=== PATIENT | female | born 1945 | race Caucasian/White ===

== ENCOUNTER 2016-12-27 09:38 | Emergency (ER) | payer MEDICARE, OTHER ==
[2016-12-27 09:51] VITALS: BP 159/72; PULSE 87; TEMP 98; BMI 29.2
--- NOTE | 2016-12-27 10:00 | PDOC ---
History of Present Illness - General Chief Complaint: Pain Stated Complaint: BACK PAIN Time Seen by Provider: 12/27/16 09:53 History Source: Patient Exam Limitations: No Limitations - History of Present Illness Initial Comments: 12/27/16 09:57 CHIEF COMPLAINT: Chronic Lower back pain HISTORY OF PRESENT ILLNESS: 71-year-old female, primarily Indonesian-speaking presents with chronic lower back pain radiating down left leg with bilateral hip pain. [facility] hematology technician number [id number]. Patient reports she was involved in an accident several years ago where she developed this pain was seen by her doctor gave her "injection" which resolved pain also gave her Naprosyn however patient is allergic to aspirin and was told not to take that medication anymore. Had also placed on Neurontin 2 tablets 3 times a day. Patient reports that the Neurontin is no longer helping her 2 days ago she bent down to pick something up and felt pain in her back. No neurosensory deficits, no bowel or bladder difficulty incontinence or urinary retention, no saddle anesthesia, no footdrop. No history of IVDU or history of cancer. REVIEW OF SYSTEMS: GENERAL: Afebrile, denies any weakness RESPIRATORY: No cough, wheezing, or hemoptysis. CARDIAC: No chest pain or shortness of breath MUSCULOSKELETAL: Pain to generalized lower back. No point tenderness. Pain worse on right than left. SKIN : No erythema, no bruising, no deformity. GI/: Denies any abdominal pain, no urinary difficulty, incontinence or urinary retention. RECTAL: Denies any difficulty this A.m. NEUROLOGICAL: Denies any numbness or tingling. No neurosensory deficits. PHYSICAL EXAM: GENERAL: The patient is awake, alert, and fully oriented, in no acute distress. RESPIRATORY: Lungs clear bilaterally, no rhonchi wheezes or crackles CARDIAC: S1-S2 audible, no murmur rub or gallop MUSCULOSKELETAL: Pain to generalized lower back, nonradiating, no tingling or sensory deficit. Less than 2 second cap refill, +4 popliteal and pedal pulses. GI/: Abdomen soft, nontender, nondistended. No rebound tenderness. No masses palpable. MUSCULOSKELETAL: No spinal point tenderness. Normal reflexive and no deficits to sensation or strength. RECTAL: Normal Rectal Tone. SKIN: Warm, Dry, normal turgor, no erythema, no edema no bruising. Past History - Past Medical History Allergies/Adverse Reactions: Allergies Allergy/AdvReac Type Severity Reaction Status Date / Time aspirin Allergy Severe "SEVERE...D Verified 12/27/16 09:52 EATH" Penicillins Allergy Severe "SEVERE...D Verified 12/27/16 09:52 EATH" latex Allergy Itching Verified 12/27/16 09:52 hydrochlorothiazide AdvReac rapid Verified 12/27/16 09:52 [From [facility]] heart rate lisinopril AdvReac rapid Verified 12/27/16 09:52 heart rate losartan potassium AdvReac rapid Verified 12/27/16 09:52 [From [facility]] heart rate Home Medications: Ambulatory Orders Amlodipine Besylate [Norvasc -] 5 mg PO DAILY 11/28/13 Esomeprazole Mag Trihydrate [Nexium] 40 mg PO DAILY 11/28/13 Gabapentin [Neurontin -] 100 mg PO BID 11/28/13 Loratadine [Claritin -] 10 mg PO DAILY 11/28/13 Multivit-Min/FA/Lycopene/Lut [Centrum Silver Tablet] 1 each PO DAILY 11/28/13 Cyclobenzaprine HCl [Flexeril 10 mg] 10 mg PO BID PRN #30 tablet 12/27/16 Lidocaine 5% Patch [Lidoderm Patch -] 1 patch TP DAILY #15 patch 12/27/16 Asthma: Yes HTN: Yes Hypercholesterolemia: Yes - Psycho/Social/Smoking Cessation Hx Suicidal Ideation: No Smoking Status: No Smoking History: Never smoked Have you smoked in the past 12 months: No Number of Cigarettes Smoked Daily: 0 Information on smoking cessation initiated: No Hx Alcohol Use: No Drug/Substance Use Hx: No Substance Use Type: None *Physical Exam - Vital Signs Last Vital Signs Temp Pulse Resp BP Pulse Ox 98 F 87 18 159/72 98 12/27/16 09:45 12/27/16 09:45 12/27/16 09:45 12/27/16 09:45 12/27/16 09:45 Medical Decision Making - Medical Decision Making 12/27/16 11:31 A/P: Patient with generalized lower back pain radiating down bilateral legs however pain worse on left than right. Patient also complaining of hip pain. Patient states she has history of the same has been under the care of her PMD who gave her "injection" one year ago. Patient states she has not had any other pain since however doctor told her to be careful in lifting or bending. Patient lifted and bent down several days ago after bending down and felt immediate pain. Patient has been taking Neurontin without resolve, no other medication. She also reports having a "patch" which helped resolve the pain name unknown. Attempted to call pharmacy however there is no prescription noted for a patch. X-rays of bilateral hips performed, patient walking with a limp want to rule out injury. Lidoderm patch applied, Flexeril ordered however patient refused states that she does not want to feel dizzy. Awaiting x-ray results. 12/27/16 11:42 X-rays are negative for acute fracture dislocation, will DC patient home on Flexeril and Lidoderm patch. Follow-up with primary care doctor for evaluation of chronic pain. I discussed the physical exam findings, ancillary test results and final diagnoses with the patient. I answered all of the patient's questions. The patient was satisfied with the care received and felt comfortable with the discharge plan and treatment plan. The patient will call to arrange follow-up and will return to the Emergency Department with any new, persistent or worsening symptoms. Patient reports that she feels better after patch and will take Flexeril when she goes home. [facility] hematology technician number [id number] 12/27/16 12:23 *DC/Admit/Observation/Transfer Diagnosis at time of Disposition: Chronic pain Qualifiers: Chronic pain type: chronic pain syndrome Qualified Code(s): G89.4 - Chronic pain syndrome Back pain Qualifiers: Back pain location: low back pain Chronicity: chronic Back pain laterality: bilateral Sciatica presence: with sciatica Sciatica laterality: bilateral sciatica Qualified Code(s): M54.42 - Lumbago with sciatica, left side - Discharge Dispostion Admit: No - Prescriptions Prescriptions: Cyclobenzaprine HCl [Flexeril 10 mg] 10 mg PO BID PRN #30 tablet PRN Reason: Back Pain Lidocaine 5% Patch [Lidoderm Patch -] 1 patch TP DAILY #15 patch - Referrals Referrals: Tiffany Storey MD [Primary Care Provider] - - Patient Instructions Printed Discharge Instructions: Low Back Pain Additional Instructions: 1. Please return to the emergency department with any numbness, tingling, weakness, numbness or tingling to groin or legs, or loss of bowel or bladder function. 2. Use pain medication as ordered. 3. Please is to followup in the office your primary care doctor for evaluation within a week if no improvement. 4. Ice or heat 5. Refrain from lifting anything above 10 pounds, until pain resolved. 1. Por favor regrese al departamento de emergencias con cualquier adormecimiento , hormigueo, debilidad, entumecimiento u hormigueo en la marv o piernas, o p rdida de la funcin intestinal o vesical. 2. Use analgsicos segn lo ordenado. 3. Por favor, es el seguimiento en la oficina de martinez mdico de atencin primaria para la evaluacin dentro de catina semana si no mejora. 4. Hielo o calor 5. Abstenerse de levantar algo por encima de 10 libras, hasta que el dolor se resuelva. Print Language: SOUTH AFRICAN
[2016-12-27 10:20] LABS: URINE APPEARANCE CLEAR; URINE BILIRUBIN NEGATIVE (NEGATIVE); URINE BLOOD NEGATIVE (NEGATIVE); URINE COLOR LTYELLOW; URINE GLUCOSE (UA) NEGATIVE (NEGATIVE); URINE KETONE NEGATIVE (NEGATIVE); URINE LEUK ESTERASE 1+ (NEGATIVE); URINE NITRITE NEGATIVE (NEGATIVE); URINE PROTEIN NEGATIVE (NEGATIVE); URINE UROBILINOGEN NEGATIVE E.U./dl (0.2-1.0)
[2016-12-27] MEDS ORDERED: LIDOCAINE 5% TOPICAL PATCH TP ONE (10:49)
[2016-12-27] MEDS ORDERED: CYCLOBENZAPRINE HCL 10 MG TABLET (FP) PO ONE (10:49)
[2016-12-27] MEDS ORDERED: LIDOCAINE 5% TOPICAL PATCH ONE (10:52)
[2016-12-27] MEDS ORDERED: CYCLOBENZAPRINE HCL 10 MG TABLET (FP) ONE (10:52)
[2016-12-27 11:17] LABS: URINE RBC <1 /hpf (0-3); URINE WBC 2 /hpf (3-5)
[2016-12-27] MEDS ORDERED: LIDOCAINE PATCH REMOVAL MC SCH (22:00)
== END 2016-12-27 12:23 | disposition home or self-care (01) ==
LOC: JER 09:38
DX: M54.42 Lumbago with sciatica, left side (principal); G89.4 Chronic pain syndrome; I10 Essential (primary) hypertension; E78.00 Pure hypercholesterolemia, unspecified; J45.909 Unspecified asthma, uncomplicated
CPT/HCPCS: 73523-TC; 81003; 81015; 87086; 99281-25

== ENCOUNTER 2017-10-18 16:41 | Emergency (ER) | payer OTHER ==
[2017-10-18 16:56] VITALS: BMI 28.5
[2017-10-18 17:22] VITALS: TEMP 97.2
[2017-10-18] MEDS ORDERED: MAG HYDROX/AL HYDROX/SIMETH 30 ML UNIT-DOSE CUP PO ONE (17:25)
[2017-10-18] MEDS ORDERED: SODIUM CHLORIDE 1,000 ML IV STA (17:25)
[2017-10-18] MEDS ORDERED: ACETAMINOPHEN 1000 MG/100 ML VIAL (NON FORMULARY) IVPB ONE (17:25)
[2017-10-18] MEDS ORDERED: ONDANSETRON 4 MG/2 ML VIAL IVPUSH ONE (17:25)
[2017-10-18 17:37] LABS: ANION GAP 14 (8-16); BILIRUBIN,TOTAL 0.5 mg/dL (0.2-1.0); BLOOD UREA NITROGEN 10 mg/dL (7-18); CALCIUM 8.8 mg/dL (8.5-10.1); CHLORIDE 101 mmol/L (98-107); CO2 27 mmol/L (21-32); CREATININE 0.7 mg/dL (0.55-1.02); GLUCOSE,RANDOM 125 mg/dL (74-106); LIPASE 87 U/L (73-393); SGPT/ALT 23 U/L (12-78); SODIUM 142 mmol/L (136-145); TOT PROT 7.6 g/dl (6.4-8.2)
--- NOTE | 2017-10-18 17:37 | PDOC ---
History of Present Illness - General Chief Complaint: Vomiting/Diarrhea Stated Complaint: WEAKNESS,DIARRHEA Time Seen by Provider: 10/18/17 16:56 History Source: Patient Exam Limitations: Language Barrier - History of Present Illness Initial Comments: 10/18/17 17:48 Patient is a 71F with history of HTN and back pain here today complaining of dizziness upon awakening this morning. She went to bed at 11pm. She states that her dizziness gets worse with movement and is improved with rest. She is also complaining of epigastric abdominal pain with several episodes of vomiting and diarrhea. She says that she feels faint and has pain along her lateral neck to her shoulder. Denies chest pain, endorses shortness of breath. Past History - Past Medical History Allergies/Adverse Reactions: Allergies Allergy/AdvReac Type Severity Reaction Status Date / Time aspirin Allergy Severe "SEVERE...D Verified 10/18/17 16:53 EATH" Penicillins Allergy Severe "SEVERE...D Verified 10/18/17 16:53 EATH" latex Allergy Itching Verified 10/18/17 16:53 NSAIDS (Non-Steroidal Allergy Verified 10/18/17 16:53 Anti-Inflamma lisinopril AdvReac rapid Verified 10/18/17 16:53 heart rate losartan potassium AdvReac rapid Verified 10/18/17 16:53 [From [facility]] heart rate Home Medications: Ambulatory Orders Alendronate Na [Fosamax] 70 mg PO MO 10/18/17 Gabapentin [Neurontin] 100 mg PO TID 10/18/17 Hydrochlorothiazide [Hctz -] 50 mg PO DAILY 10/18/17 Pantoprazole Sodium [Protonix] 40 mg PO DAILY 10/18/17 Asthma: Yes COPD: No HTN: Yes Hypercholesterolemia: Yes - Suicide/Smoking/Psychosocial Hx Smoking Status: No Smoking History: Never smoked Have you smoked in the past 12 months: No Number of Cigarettes Smoked Daily: 0 Information on smoking cessation initiated: No Hx Alcohol Use: No Drug/Substance Use Hx: No Substance Use Type: None Review of Systems - Review of Systems Comments:: 10/18/17 17:54 GENERAL/CONSTITUTIONAL: No fever or chills. Positive for diffuse weakness. HEAD, EYES, EARS, NOSE AND THROAT: No change in vision. No sore throat. CARDIOVASCULAR: No chest pain. Positive for shortness of breath RESPIRATORY: No cough, wheezing, or hemoptysis. GASTROINTESTINAL: Positive for nausea, vomiting, diarrhea. GENITOURINARY: No dysuria, frequency, or change in urination. MUSCULOSKELETAL: No joint or muscle swelling or pain. Positive for back and neck pain. SKIN: No rash NEUROLOGIC: No headache, vertigo, loss of consciousness, or change in strength/ sensation. ENDOCRINE: No increased thirst. No abnormal weight change HEMATOLOGIC/LYMPHATIC: No anemia, easy bleeding, or history of blood clots. ALLERGIC/IMMUNOLOGIC: No hives or skin allergy. *Physical Exam - Vital Signs Last Vital Signs Temp Pulse Resp BP Pulse Ox 97.2 F L 83 18 162/72 95 10/18/17 17:22 10/18/17 16:54 10/18/17 16:54 10/18/17 16:54 10/18/17 16:54 - Physical Exam Comments: 10/18/17 17:55 GENERAL: Awake, alert, and fully oriented, in no acute distress HEAD: No signs of trauma, normocephalic, atraumatic EYES: PERRLA, EOMI, sclera anicteric, conjunctiva clear ENT: Auricles normal inspection, hearing grossly normal, nares patent, oropharynx clear without exudates. Moist mucosa NECK: Normal ROM, supple, no lymphadenopathy, JVD, or masses LUNGS: No distress, speaks full sentences, clear to auscultation bilaterally HEART: Regular rate and rhythm, normal S1 and S2, no murmurs, rubs or gallops, peripheral pulses normal and equal bilaterally. ABDOMEN: Soft, mild tenderness in epigastrium, normoactive bowel sounds. No guarding, no rebound. No masses EXTREMITIES: Normal inspection, Normal range of motion, no edema. No clubbing or cyanosis. NEUROLOGICAL: Cranial nerves II through XII grossly intact. Normal speech, no focal sensorimotor deficits SKIN: Warm, Dry, normal turgor, no rashes or lesions noted. ED Treatment Course - LABORATORY CBC & Chemistry Diagram: 10/18/17 17:10 10/18/17 17:10 - RADIOLOGY Radiology Studies Ordered: Category Date Time Status CHEST X-RAY PORTABLE* [RAD] Stat Radiology 10/18/17 17:25 Ordered Medical Decision Making - Medical Decision Making 10/18/17 17:56 71F with history of htn and back pain here today with vomiting, diarrhea, dizziness, epigastric abdominal pain. Vital signs stable. Exam benign. Believe patient most likely has gastritis secondary to viral etiology, however I am also considering atypical ACS presentation, BPPV, arrhythmias, posterior circulation stroke. Will treat with maalox, zofran, fluids, pepcid, meclizine. EKG shows normal sinus rhythm with rate of 67. No st elevations/depressions. Inverted t wave in V3. Normal MS/QRS/QTc intervals. Normal axis. 10/18/17 17:58 Laboratory Tests 10/18/17 10/18/17 17:10 17:10 WBC 7.4 Hgb 14.6 Hct 42.6 Plt Count 261 BUN 10 Creatinine 0.7 Troponin I < 0.02 CBC normal. CMP reassuring. Troponin undetectable. 10/18/17 18:21 Patient reassessed. Too dizzy to use bathroom. Taken back to room in wheelchair. Vertigo is brought on acutely by movement. Will give additional 25 meclizine, reassess. 10/18/17 19:04 Patient reassessed. Says she improved with rest, then vertigo returned abruptly with movement. Patient's presentation now very consistent with BPPV. Signed out to Dr Wolfe pending resolution of symptoms. *DC/Admit/Observation/Transfer Diagnosis at time of Disposition: BPPV (benign paroxysmal positional vertigo) Qualifiers: Laterality: unspecified laterality Qualified Code(s): H81.10 - Benign paroxysmal vertigo, unspecified ear - Discharge Dispostion Disposition: HOME Condition at time of disposition: Improved - Referrals Referrals: Cordell Jimenes DO [Staff Physician] - Tiffany Storey MD [Primary Care Provider] - - Patient Instructions Printed Discharge Instructions: DI for Benign Paroxysmal Positional Vertigo Additional Instructions: Usted tiene sntomas que probablemente asad vrtigo. Necesitamos que dave un seguimiento con un neurlogo para que esto se analice ms a fondo. Regrese al servicio de urgencias si ashok sntomas no mejoran maana por la maana o si empeoran. Print Language: GERMAN - Post Discharge Activity
[2017-10-18] MEDS ORDERED: FAMOTIDINE IV 20 MG/12 ML VIAL IVPB ONE (17:39)
[2017-10-18 17:40] LABS: ALK PHOS 55 U/L (45-117); BASO % 0.6 % (0-2.0); EOS % 0.4 % (0-4.5); HEMATOCRIT 42.6 % (32.4-45.2); HEMOGLOBIN 14.6 GM/dL (10.7-15.3); LYMPH % 27.7 % (8-40); MCH 29.9 pg (25.7-33.7); MCHC 34.2 g/dl (32.0-36.0); MEAN CELL VOLUME 87.4 fl (80-96); MEAN PLT VOLUME 8.6 fl (7.5-11.1); MONO % 4.9 % (3.8-10.2); NEUT % 66.4 % (42.8-82.8); PLATELET COUNT 261 K/MM3 (134-434); RBC 4.88 M/mm3 (3.60-5.2); RDW 13.6 % (11.6-15.6); WHITE BLOOD COUNT 7.4 K/mm3 (4.0-10.0)
[2017-10-18] MEDS ORDERED: MECLIZINE HCL 25 MG TABLET (FP) PO ONE ×2 (17:40→18:24)
--- NOTE | 2017-10-18 17:40 | PDOC ---
Attending Attestation - Resident Resident Name: Kong Alegria - ED Attending Attestation I have performed the following: I have examined & evaluated the patient, The case was reviewed & discussed with the resident, I agree w/resident's findings & plan, Exceptions are as noted - HPI HPI: 10/18/17 17:30 71 female BIBA from home for nausea,vomiting and diarrhea and dizziness.generalized weakness. . [id number] - Physicial Exam PE: 10/18/17 18:25 71 yo female with nausea and vomiting exacerbated with movement head ncat eyes cesar eomi neck supple lungs cta b/l cvs [id number] abd nontender ext no edema,no cellulitis skin warm and dry neuro axox3,ambulatory with assistance because she feels dizzy psych appropriate 10/18/17 20:45 - Medical Decision Making 10/18/17 20:46 labs reviewed,no gross focal deficits on exam pt feels better Daughter and pt told to return if her symptoms worsen
[2017-10-18] MEDS ORDERED: MECLIZINE HCL 25 MG TABLET (FP) ONE ×2 (17:41→18:29)
[2017-10-18] MEDS ORDERED: ACETAMINOPHEN INJECTION 100 ML IVPB ONE (17:41)
[2017-10-18 17:42] LABS: POTASSIUM 3.4 mmol/L (3.5-5.1); SGOT/AST 20 U/L (15-37)
[2017-10-18] MEDS ORDERED: FAMOTIDINE 20 MG/50 ML IVPB 20 MG/50 ML MG IVPB ONE (17:42)
[2017-10-18] MEDS ORDERED: ONDANSETRON 4 MG/2 ML VIAL ONE (17:42)
[2017-10-18] MEDS ORDERED: MAG HYDROX/AL HYDROX/SIMETH 30 ML UNIT-DOSE CUP ONE (17:42)
[2017-10-18 18:04] VITALS: BP 131/55; PULSE 76
--- NOTE | 2017-10-18 20:57 | PDOC ---
*Physical Exam - Vital Signs Last Vital Signs Temp Pulse Resp BP Pulse Ox 97.2 F L 76 18 131/55 97 10/18/17 17:22 10/18/17 18:04 10/18/17 18:04 10/18/17 18:04 10/18/17 18:04 ED Treatment Course - LABORATORY CBC & Chemistry Diagram: 10/18/17 17:10 10/18/17 17:10 - ADDITIONAL ORDERS Additional order review: Laboratory Results 10/18/17 17:10 Sodium 142 Potassium 3.4 L Chloride 101 Carbon Dioxide 27 Anion Gap 14 BUN 10 Creatinine 0.7 Creat Clearance w eGFR > 60 Random Glucose 125 H Calcium 8.8 Total Bilirubin 0.5 D AST 20 ALT 23 Alkaline Phosphatase 55 Creatine Kinase 70 Troponin I < 0.02 Total Protein 7.6 Albumin 4.0 Lipase 87 10/18/17 17:10 RBC 4.88 MCV 87.4 MCHC 34.2 RDW 13.6 MPV 8.6 Neutrophils % 66.4 Lymphocytes % 27.7 Monocytes % 4.9 Eosinophils % 0.4 Basophils % 0.6 - Medications Given in the ED: ED Medications Discontinued Medications Generic Name Dose Route Start Last Admin Trade Name Freq PRN Reason Stop Dose Admin Acetaminophen 1,000 mg 10/18/17 17:25 10/18/17 17:51 Ofirmev Injection - IVPB 10/18/17 17:26 1,000 mg ONCE ONE Administration Al Hydroxide/Mg Hydroxide 30 ml 10/18/17 17:25 10/18/17 18:14 Mylanta Oral Suspension - PO 10/18/17 17:26 30 ml ONCE ONE Administration Sodium Chloride 1,000 mls @ 1,000 mls/hr 10/18/17 17:25 10/18/17 17:39 Normal Saline - IV 10/18/17 18:24 1,000 mls/hr ASDIR STA Administration Famotidine 20 mg in 12 mls @ 144 mls/hr 10/18/17 17:39 10/18/17 17:45 Pepcid 20 Mg/12 Ml Push IVPB 10/18/17 17:43 144 mls/hr ONCE ONE Administration Meclizine HCl 25 mg 10/18/17 17:40 10/18/17 17:52 Antivert - PO 10/18/17 17:41 25 mg ONCE ONE Administration Meclizine HCl 25 mg 10/18/17 18:24 10/18/17 18:31 Antivert - PO 10/18/17 18:25 25 mg ONCE ONE Administration Ondansetron HCl 4 mg 10/18/17 17:25 10/18/17 17:45 Zofran Injection IVPUSH 10/18/17 17:26 4 mg ONCE ONE Administration Medical Decision Making - Medical Decision Making Patient able to ambulate with occasional minimal assistance but overall much improved. Will discharge without Meclizine (qtc 500), with neuro follow up, and with PCP follow up, and with return instructions, Her daughter will assist her to her bedroom tonight and she will keep her cellphone by her bedside in case she is still symptomatic tomorrow morning. 10/18/17 20:46 *DC/Admit/Observation/Transfer Diagnosis at time of Disposition: BPPV (benign paroxysmal positional vertigo) Qualifiers: Laterality: unspecified laterality Qualified Code(s): H81.10 - Benign paroxysmal vertigo, unspecified ear - Discharge Dispostion Disposition: HOME Condition at time of disposition: Improved Admit: No - Referrals Referrals: Tiffany Storey MD [Primary Care Provider] - Cordell Jimenes DO [Staff Physician] - - Patient Instructions Printed Discharge Instructions: DI for Benign Paroxysmal Positional Vertigo Additional Instructions: Usted tiene sntomas que probablemente asad vrtigo. Necesitamos que dave un seguimiento con un neurlogo para que esto se analice ms a fondo. Regrese al servicio de urgencias si ashok sntomas no mejoran maana por la maana o si empeoran. Print Language: TRINIDADIAN - Post Discharge Activity
[2017-10-18] MEDS ORDERED: FAMOTIDINE IV 20 MG/12 ML VIAL IVPUSH SCH (22:00)
--- NOTE | 2017-10-19 10:59 | EKG ---
Test Reason : Blood Pressure : / mmHG Vent. Rate : 067 BPM Atrial Rate : 067 BPM P-R Int : 200 ms QRS Dur : 088 ms QT Int : 478 ms P-R-T Axes : 057 007 051 degrees QTc Int : 505 ms NORMAL SINUS RHYTHM NONSPECIFIC T WAVE ABNORMALITY PROLONGED QT ABNORMAL ECG WHEN COMPARED WITH ECG OF 28-NOV-2013 12:05, NO SIGNIFICANT CHANGE WAS FOUND Confirmed by MACY BAKER MD ([id number]) on 10/19/2017 10:59:29 AM Referred By: Confirmed By:MACY BAKER MD
== END 2017-10-18 21:55 | disposition home or self-care (01) ==
LOC: JER 16:41
PROC: 3E0337Z Introduction of Electrolytic and Water Balance Substance into Peripheral Vein, Percutaneous Approach (ICD-10-PCS; principal; 2017-10-18)
PROC: 3E033NZ Introduction of Analgesics, Hypnotics, Sedatives into Peripheral Vein, Percutaneous Approach (ICD-10-PCS; 2017-10-18)
PROC: 3E033GC Introduction of Other Therapeutic Substance into Peripheral Vein, Percutaneous Approach (ICD-10-PCS; 2017-10-18)
DX: H81.10 Benign paroxysmal vertigo, unspecified ear (principal); R53.1 Weakness; I10 Essential (primary) hypertension; M54.5 Low back pain
CPT/HCPCS: 36415; 71045-TC-FY; 80053; 82550; 83690; 84484; 85025; 93005; 93010; 96361; 96374; 96375; 99283-25; J0131; J7030